=== PATIENT | female | born 1960 | race Caucasian/White ===

== ENCOUNTER 2018-04-05 08:56 | Outpatient (CLI) | payer OTHER | END 2018-04-05 08:57 | disposition home or self-care (01) | LOC: C.MAMMO 08:57 ==

== ENCOUNTER 2018-04-17 08:44 | Day surgery (SDC) | payer OTHER ==
[2018-04-16 10:31] VITALS: BMI 28.7
[2018-04-17 09:05] VITALS: O2SAT 100
[2018-04-17] MEDS ORDERED: Pantoprazole 40 mg EC Tab PO STA (10:06)
--- NOTE | 2018-04-17 10:06 | CP.SDSHP ---
Same Day Surgery H & P - Previous Medical/Surgical History Misc: Other (Glaucoma, Ovarian cysts) Previous Surgical History: Lap Cholecystectomy-1988. Hysteroscopy. Laparoscopy 2015 - Allergies Allergies: Allergies No Known Allergies Allergy (Verified 04/16/18 10:31) - Physical Exam Vital Signs: Vital Signs 04/17/18 08:59 Temperature 99.1 F Pulse Rate 73 Respiratory 18 Rate Blood Pressure 146/62 O2 Sat by Pulse 100 Oximetry Mental Status: Alert & Oriented x3 Neuro: WNL Heart: WNL Lungs: WNL GI: WNL - Impression Impression: Epigastric pain/tenderness. Nausea Pt. Evaluated Today:Candidate for Anesthesia & Procedure: Yes - Date & Time Date: 04/17/18 Time: 10:06 Short Stay Discharge - Short Stay Discharge Admitting Diagnosis/Reason for Visit: EPIGASTRIC PAIN / HEARTBURN Disposition: HOME/ ROUTINE
[2018-04-17] MEDS ORDERED: Lidocaine Hydrochloride 5 ML INJ ONE (10:07)
[2018-04-17] MEDS ORDERED: Propofol 10 mg/ml Inj (20 ML) ONE (10:07)
[2018-04-17 11:36] VITALS: TEMP 97
[2018-04-17 11:37] VITALS: RESP 18
[2018-04-17 11:43] VITALS: BP 118/60; PULSE 70
== END 2018-04-17 11:30 | disposition home or self-care (01) ==
LOC: C.ENDO 08:44
PROVIDERS: ATTEND Internal Medicine Gastroenterology
DX: K21.0 Gastro-esophageal reflux disease with esophagitis (principal); K29.50 Unspecified chronic gastritis without bleeding; K22.10 Ulcer of esophagus without bleeding
CPT/HCPCS: 43239; 84703; 88305; J2704